=== PATIENT | female | born 1985 | race Caucasian/White ===

== ENCOUNTER 2022-03-05 17:49 | Emergency (ER) | payer MEDICAID ==
[~2022-03-05] VITALS: Ht 160 cm; Wt 91.4 kg
[~2022-03-05 17:49] MED LIST: NO HOME MEDS; POLY119P2 PO
[2022-03-05 18:57] VITALS: BP 120/84
== END 2022-03-05 21:25 | disposition left against medical advice (07) ==
LOC: ER 17:50
DX: R07.9 Chest pain, unspecified (principal); R00.2 Palpitations; Z53.21 Procedure and treatment not carried out due to patient leaving prior to being seen by health care provider
CPT/HCPCS: 93005

== ENCOUNTER 2023-09-20 10:05 | Day surgery (SDC) | payer MEDICAID ==
[2023-09-20] VITALS (16 sets, daily range): BP systolic 111–137; BP diastolic 66–92; PULSE 84–109; RESP 10–17; TEMP 97–99.2; O2SAT 95–100
[~2023-09-20] VITALS: Ht 160 cm; Wt 99.9 kg
[2023-09-20] MEDS: cefazolin 2gm/D5W 100mL 100 ML IV ONE (05:30)
[~2023-09-20 10:05] MED LIST changes: +ALLO200T PO; +AMLO2.5T5 PO; +ASEN10TA11 SL; +INDO75CA3 PO; +LISI40TA13 PO; +LIT300C PO; +LYR25C PO; +METF-1203 PO; -NO HOME MEDS; -POLY119P2 PO; +PRED2.5T4 PO
[2023-09-20] MEDS: famotidine 20mg tablet PO ONE (10:31)
[2023-09-20] MEDS: ringers solution, lacted 1,000 ML IV SCH (10:32)
[2023-09-20 10:47] LABS: BASOPHILS % (AUTO) 0.4 % (0-1); EOSINOPHILS # (AUTO) 0.2 X10'3 (0-0.9); EOSINOPHILS % (AUTO) 1.5 % (0-6); LYMPHOCYTES # (AUTO) 2.8 X10'3 (1.1-4.8); LYMPHOCYTES % (AUTO) 27.3 % (21-51); MEAN CORPUSCULAR HEMOGLOBIN 31.6 PG (27.0-31.0); MEAN CORPUSCULAR HGB CONC 34.2 g/dL (33.0-36.5); MEAN CORPUSCULAR VOLUME 92.2 FL (78-98); MEAN PLATELET VOLUME 6.8 FL (7.4-10.4); MONOCYTES # (AUTO) 0.7 X10'3 (0-0.9); MONOCYTES % (AUTO) 6.7 % (2-12); NEUTROPHILS # (AUTO) 6.6 X10'3 (1.8-7.7); NEUTROPHILS % (AUTO) 64.1 % (42-75); PRE OP HEMATOCRIT 41.8 % (35.0-45.0); PRE OP HEMOGLOBIN 14.3 g/dL (12.0-16.0); PRE OP PLATELET COUNT 247 X10'3 (140-440); PRE OP WHITE BLOOD COUNT 10.3 10'3 (4.8-10.8); RED BLOOD COUNT 4.53 X10'6 (4.20-5.60); RED CELL DISTRIBUTION WIDTH 13.7 % (11.5-14.5)
[2023-09-20] MEDS ORDERED: morphine 4 MG/ML inj SYRINge IV PRN (11:00)
[2023-09-20] MEDS ORDERED: morphine 2 MG/ML inj. syringe IV PRN (11:00)
[2023-09-20] MEDS ORDERED: labetalol 20mg/4ml (5mg/ml) syringe IV PRN (11:00)
[2023-09-20] MEDS ORDERED: ondansetron/PF 4mg/2ml inj IV PRN (11:00)
[2023-09-20] MEDS ORDERED: meperidine/PF 25mg/ml syringe IV PRN ×3 (11:00)
[2023-09-20] MEDS ORDERED: proCHLORperazine 10 MG/2 ml inj IV PRN (11:00)
[2023-09-20] MEDS ORDERED: ringers solution, lacted 1,000 ML IV SCH (11:00)
[2023-09-20] MEDS ORDERED: enalaprilat dihydrate 2.5mg/2ml vial IV PRN (11:00)
[2023-09-20] MEDS ORDERED: bacitracin 15gm ointment TP ONE (11:01)
[2023-09-20] MEDS ORDERED: BUPIVAcaine/PF 2.5mg/ml (0.25%) 10ml vial ONE (11:01)
[2023-09-20 11:04] LABS: ALKALINE PHOSPHATASE 68 IU/L (46-116); BLOOD UREA NITROGEN 11 MG/DL (7-18); BUN/CREATININE RATIO 15.3 (10.0-20.0); CALCIUM 9.4 MG/DL (8.5-10.1); CHLORIDE 105 MMOL/L (99-107); CREATININE 0.72 MG/DL (0.40-0.90); PRE OP ANION GAP 11 (8-16); PRE OP BILIRUB, TOTAL 0.4 MG/DL (0.0-1.0); PRE OP GLUCOSE 100 MG/DL (70-104); PRE OP SODIUM 139 MMOL/L (135-145); TOTAL CARBON DIOXIDE 22.8 MMOL/L (24-32); TOTAL PROTEIN 8.1 G/DL (6.4-8.2); eCRCL 88 ML/MIN; eGFR > 90 ML/MIN
[2023-09-20 11:20] LABS: HCG SERUM QL NEGATIVE
[2023-09-20 11:22] LABS: PRE OP ALT 126 U/L (30-65); PRE OP AST 108 U/L (10-37)
[2023-09-20 11:30] LABS: BILIRUBIN,URINE NEGATIVE (Neg); CLARITY,URINE CLOUDY (Clear); COLOR,URINE YELLOW (Yellow); GLUCOSE, URINE NEGATIVE (Neg); KETONES,URINE NEGATIVE (Neg); LEUKOCYTE ESTERASE ,URINE NEGATIVE (Neg); NITRITES, URINE NEGATIVE (Neg); OCCULT BLOOD,URINE NEGATIVE (Neg); PH,URINE 5.5 (4.8-8.0); PROTEIN,URINE NEGATIVE (Neg); UROBILINOGEN,URINE 0.2 E.U/dL (0.2-1.0)
[2023-09-20 11:36] LABS: MUCUS STRANDS MANY /LPF (Neg); SQUAMOUS EPITHELIAL CELL,UR MANY /LPF (FEW); UA COLLECTION TYPE CLN CATCH MIDSTREAM
[2023-09-20 11:37] LABS: BACTERIA,URINE 3+ /HPF (Neg); WBC,URINE 0-4 /HPF (0-4)
[2023-09-20] MEDS ORDERED: sevoflurane 250ml liquid IH ONE (11:40)
[2023-09-20] MEDS ORDERED: fentaNYL/PF 50MCG/1 ML 2ML syringe ONE (11:47)
[2023-09-20] MEDS ORDERED: MIDAZolam 1 MG/ML 5ML VIAL ONE (11:47)
[2023-09-20] MEDS ORDERED: LIDOcaine 1%/PF 5ML 10 MG/ML VIAL ONE (12:04)
[2023-09-20] MEDS ORDERED: propofol inj 20 ML IV ONE (12:04)
[2023-09-20] MEDS ORDERED: dexamethasone sod phosphate 4mg/ml inj. ONE (12:04)
[2023-09-20] MEDS ORDERED: ondansetron/PF 4mg/2ml inj ONE (12:17)
[2023-09-20] MEDS ORDERED: ROPIVAcaine 0.5% (5mg/ml) 30ml vial ONE (12:17)
[2023-09-20] MEDS: bacitracin 15gm ointment TP ONE (12:42)
[2023-09-20] MEDS: acetaminophen 1,000mg/100ml IV 100 ML IV ONE (14:54)
== END 2023-09-20 15:20 | disposition home or self-care (01) ==
LOC: PAS 10:05
PROVIDERS: ATTEND Podiatrist Foot & Ankle Surgery
DX: M72.2 Plantar fascial fibromatosis (principal); M54.16 Radiculopathy, lumbar region; M47.814 Spondylosis without myelopathy or radiculopathy, thoracic region; M47.816 Spondylosis without myelopathy or radiculopathy, lumbar region; M47.812 Spondylosis without myelopathy or radiculopathy, cervical region; E66.01 Morbid (severe) obesity due to excess calories; Z68.41 Body mass index [BMI] 40.0-44.9, adult; F31.9 Bipolar disorder, unspecified; I10 Essential (primary) hypertension; E11.9 Type 2 diabetes mellitus without complications; G89.18 Other acute postprocedural pain; M10.9 Gout, unspecified; Z98.890 Other specified postprocedural states; Z88.2 Allergy status to sulfonamides; Z79.899 Other long term (current) drug therapy
CPT/HCPCS: 28062; 36415; 64445; 80053; 81001; 84703; 85025; A6223; J0131; J0690; J1100; J2250; J2405; J2704; J2795; J3010; J3490; J7030; J7120; Z7506; Z7508; Z7512; A4215; A4618; A6449; A7000

== ENCOUNTER 2024-05-11 12:40 | Emergency (ER) | payer MEDICAID ==
[~2024-05-11] VITALS: Ht 160 cm; Wt 90.9 kg
[2024-05-11 12:45] VITALS: TEMP 98.3
[2024-05-11 13:04] LABS: BASOPHILS # (AUTO) 0.1 X10'3 (0-0.2); BASOPHILS % (AUTO) 0.7 % (0-1); EOSINOPHILS # (AUTO) 0.1 X10'3 (0-0.9); HEMATOCRIT 40.2 % (35.0-45.0); HEMOGLOBIN 13.6 g/dl (12.0-16.0); LYMPHOCYTES % (AUTO) 34.7 % (21-51); MEAN CORPUSCULAR HEMOGLOBIN 31.3 PG (27.0-31.0); MEAN CORPUSCULAR HGB CONC 33.9 g/dL (33.0-36.5); MEAN CORPUSCULAR VOLUME 92.5 FL (78-98); MONOCYTES # (AUTO) 0.5 X10'3 (0-0.9); MONOCYTES % (AUTO) 5.4 % (2-12); NEUTROPHILS % (AUTO) 58.2 % (42-75); PLATELET COUNT 221 X10'3 (140-440); RED BLOOD COUNT 4.35 X10'6 (4.20-5.60); RED CELL DISTRIBUTION WIDTH 12.9 % (11.5-14.5); WHITE BLOOD COUNT 8.6 X10'3 (4.5-11.0)
[2024-05-11 13:16] LABS: ALANINE AMINOTRANSFERASE 79 U/L (12-78); ALBUMIN 3.6 G/DL (3.4-5.0); ALBUMIN/GLOBULIN RATIO 0.8 (1.1-1.5); ALKALINE PHOSPHATASE 76 IU/L (46-116); ANION GAP 10 (8-16); ASPARTATE AMINO TRANSFERASE 45 U/L (10-37); BILIRUBIN,TOTAL 0.5 MG/DL (0.1-1.0); BLOOD UREA NITROGEN 10 MG/DL (7-18); BUN/CREATININE RATIO 11.9 (10.0-20.0); CALCIUM 9.3 MG/DL (8.5-10.1); CHLORIDE 102 MMOL/L (99-107); CREATININE 0.84 MG/DL (0.40-0.90); GLUCOSE 92 MG/DL (70-104); POTASSIUM 3.7 MMOL/L (3.5-5.1); SODIUM 138 MMOL/L (135-145); TOTAL CARBON DIOXIDE 26.5 MMOL/L (24-32); TOTAL PROTEIN 7.9 G/DL (6.4-8.2); eCRCL 74 ML/MIN; eGFR 75 ML/MIN
[2024-05-11 13:24] LABS: PRO BRAIN NATRIURETIC PEPTIDE 68 PG/ML (0-125)
[2024-05-11] MEDS ORDERED: MECL-302 PO (16:37)
[2024-05-11] MEDS ORDERED: OMEP40CA21 PO (16:37)
[2024-05-11 16:59] VITALS: BP 122/82; PULSE 78; RESP 17; O2SAT 97
== END 2024-05-11 17:02 | disposition home or self-care (01) ==
LOC: ER 12:41
DX: R07.9 Chest pain, unspecified (principal); K21.9 Gastro-esophageal reflux disease without esophagitis; G43.909 Migraine, unspecified, not intractable, without status migrainosus; Z88.2 Allergy status to sulfonamides; Z79.84 Long term (current) use of oral hypoglycemic drugs; Z79.899 Other long term (current) drug therapy; Z90.49 Acquired absence of other specified parts of digestive tract; Z98.890 Other specified postprocedural states
CPT/HCPCS: 36415; 71045; 80053; 83880; 84484; 85025; 93005; 99285

== ENCOUNTER 2025-04-05 21:15 | Emergency (ER) | payer MEDICAID ==
[~2025-04-05] VITALS: Ht 160 cm; Wt 95.9 kg
[~2025-04-05 21:15] MED LIST changes: -LISI40TA13 PO; +LISI40TA20 PO; +MECL-302 PO
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
[2025-04-05] MEDS: ondansetron/PF 4mg/2ml inj IV ONE (22:00)
[2025-04-05] MEDS: normal saline 1000ML IV soln IVB ONE (22:03)
[2025-04-05 22:05] LABS: MEAN PLATELET VOLUME 6.7 FL (7.4-10.4); RED CELL DISTRIBUTION WIDTH 13.2 % (11.5-14.5)
[2025-04-05 22:15] LABS: CREATININE 0.59 MG/DL (0.40-0.90); TOTAL CARBON DIOXIDE 21.4 MMOL/L (24-32); eCRCL 105 ML/MIN; eGFR > 90 ML/MIN
[2025-04-06 00:16] VITALS: BP 124/82; PULSE 82; RESP 14; TEMP 98.7; O2SAT 99
== END 2025-04-06 00:18 | disposition home or self-care (01) ==
LOC: ER 21:16
DX: F10.129 Alcohol abuse with intoxication, unspecified (principal); K21.9 Gastro-esophageal reflux disease without esophagitis; G43.909 Migraine, unspecified, not intractable, without status migrainosus; Z88.2 Allergy status to sulfonamides; Z88.8 Allergy status to other drugs, medicaments and biological substances; Z90.49 Acquired absence of other specified parts of digestive tract; Z90.89 Acquired absence of other organs; Y90.9 Presence of alcohol in blood, level not specified
CPT/HCPCS: 36415; 80048; 85025; 96361; 96374; 99284; J2405; J7030